=== PATIENT | male | born 1950 | race Asian ===

== ENCOUNTER 2023-02-06 03:14 | Emergency (ER) | payer MEDICARE, BC ==
[2023-02-06] MEDS ORDERED: oxyCODONE/ACET 5/325 Prepack 4 PO STA (04:11)
--- NOTE | 2023-02-06 04:12 | ED Physician Documentation ---
PD HPI LOWER EXT INJURY - Stated complaint Stated Complaint: FOOT PX - Chief complaint Chief Complaint: General - History obtained from History obtained from: Patient - Additional information Additional information: Patient is a 72-year-old male presenting for evaluation of pain to the left great toe that is been present for 5 days. Patient states that he has had other episodes of gout that feels similar to this but have improved on prednisone. He went to the [facility] 5 days ago when this started and was given 40 mg of prednisone for 5 days. He states he initially had some improvement over the first few days but then it has worsened again over the past 2 days. He and his state that they are moving in between homes and so he has been doing a lot of movements on his feet Which she increased once his pain was doing better. He has not taken anything else for pain.He denies diabetes. He denies trauma or injury.He does not take a blood thinner.No fevers. Review of Systems Constitutional: denies: Fever Cardiac: denies: Chest pain / pressure Respiratory: denies: Dyspnea GI: denies: Abdominal Pain Musculoskeletal: reports: Extremity pain Neurologic: denies: Headache PD PAST MEDICAL HISTORY - Present Medications Home Medications: Ambulatory Orders Medication Instructions Recorded Confirmed Oxycodone HCl/Acetaminophen 1 each PO Q6H PRN #14 tablet 02/06/23 [Percocet 5-325 mg Tablet] predniSONE [Deltasone] 20 mg PO [id number] #21 tab 02/06/23 - Allergies Allergies/Adverse Reactions: Allergies Allergy/AdvReac Type Severity Reaction Status Date / Time No Known Drug Allergies Allergy Verified 02/06/23 03:36 PD ED PE NORMAL - General General: Alert and oriented X 3, No acute distress, Well developed/nourished - HEENT HEENT: Atraumatic - Neck Neck: Supple, no meningeal sign - Cardiac Cardiac: Strong equal pulses - Respiratory Respiratory: No respiratory distress - Extremities Extremities: Other (Redness and warmth to left MTP joint; Mild swelling, distal pulses intact; No open wounds or abrasions) Results - Vitals Vitals: Vital Signs - 24 hr 02/06/23 02/06/23 03:26 04:25 Temperature 36.8 C Heart Rate 75 79 Respiratory 18 18 Rate Blood Pressure 161/91 H 169/99 H O2 Saturation 97 99 Oxygen O2 Source Room air PD Medical Decision Making - ED course ED course: Patient is a 72-year-old male presenting for evaluation of redness and swelling to left MTP joint. He does have a history of gout. He was recently started on prednisone for suspicion for gout flare and initially did have improvement. Therefore he did increase his activity and has since had increased pain.No fever. No open wounds. Is reported initially having improvement I feel this makes a septic joint less likely. We discussed options for treatment.Patient does feel that he was doing more on his feet once his initial pain was starting to improve which has exacerbated his symptoms now. We will start the patient on a longer course of prednisone and pain medication. However he was advised on strict return precautions if symptoms or not improving over the course of the next 2 days and was also encouraged to take it easier. He was also advised on return precautions for any worsening symptoms. Departure - Departure Disposition: 01 Home, Self Care Clinical Impression: Gout attack Condition: Stable Instructions: ED Arthritis Gout Prescriptions: predniSONE [Deltasone] 20 mg PO [id number] #21 tab Oxycodone HCl/Acetaminophen [Percocet 5-325 mg Tablet] 1 each PO Q6H PRN #14 tablet PRN Reason: pain Comments: Based on the history and exam I still suspect that the cause for your pain is related to a gout attack. As you did have some improvement initially with the prednisone I we will start you on a longer tapered regiment of prednisone. I will also prescribe a small amount of narcotic pain medication to help you with the acute pain. I would expect this to get better and would recommend you taking it more easy on the foot for the next several days. I would also recommend elevation to help with any swelling. However if you develop any fevers, have worsening pain, notice worsening redness or have any concerns please return to the emergency department. I have sent your prescriptions to [facility] in [place]. I am prescribing a short course of narcotic pain medication for you. These are potentially dangerous and addictive medications that should be used carefully. These medications may constipate you. Take an [id number] stool softener (docusate) twice daily with plenty of water while taking these medications. If you go 24 hours without a bowel movement, take [id number] miralax, per package instructions. Do not drink or drive while taking these medications. If you received narcotic or sedating medications while in the emergency d epartment, do not drive for 24 hours. Store this medication in a safe, secure place and out of reach of children. It is a violation of federal law to give or sell this medication to another person or to use in a manner other than prescribed. The ED will not refill narcotic prescriptions, including prescriptions lost or stolen. To dispose of unwanted medications: 1. [facility] at [address] in [place] has a medication drop box. They accept prescription medications (in pill form) Monday through Monday 9:00 a.m. to 5:00 p.m. 2. [facility] [employer] accepts prescription medications (in pill form only) for disposal year round. Call for more information. 3. Contact the [facility] for the next [facility] sponsored prescription drug collection event. , [phone], or [phone]; Note that many narcotic pain relievers also contain Tylenol/acetaminophen. Please ensure that your total dose of acetaminophen from all sources does not exceed 3 g (3000 mg) per day. Discharge Date/Time: 02/06/23 04:28
[2023-02-06 04:29] VITALS: BP 169/99
== END 2023-02-06 04:28 | disposition home or self-care (01) ==
LOC: ED 03:14
DX: M10.9 Gout, unspecified (principal)
CPT/HCPCS: 99282; 99283